=== PATIENT | male | born 1960 | race Caucasian/White ===

== ENCOUNTER 2019-02-05 19:08 | Emergency (ER) | payer OTHER | END 2019-02-05 20:13 | disposition home or self-care (01) | LOC: E/R 19:08 | DX: K40.90 Unilateral inguinal hernia, without obstruction or gangrene, not specified as recurrent (principal); I10 Essential (primary) hypertension; I25.2 Old myocardial infarction; Z86.73 Personal history of transient ischemic attack (TIA), and cerebral infarction without residual deficits; Z98.61 Coronary angioplasty status | CPT/HCPCS: 99283; Z7502 ==